=== PATIENT | male | born 1945 | race Caucasian/White ===

== ENCOUNTER 2024-10-10 13:45 | Outpatient (AMB) | payer OTHER, SELFPAY ==
--- NOTE | 2024-10-10 13:47 | A.OFFVIS_ITS ---
Vital Signs 10/10/24 13:48 Height 5 ft 5 in Weight 188 lb BMI 31.3 BP 116/72 Blood Pressure Location Rt brachial Position Sitting Pulse 74 Pulse Source Pulse Oximeter Pulse Oximetry (%) 97 Oxygen Delivery Method Room Air Intake Visit Reasons: ENP-Parkinsonism unspecified Intake Note: Patient referred by NH for parkinsonism Allergies No Known Allergies Allergy (Verified 10/10/24 13:49) Medication List - Last Reconciled 10/10/24 by Arianna García MD carbidopa-levodopa 25-100 mg 2 tabs PO escitalopram oxalate 20 mg PO metoprolol succinate ER mg PO HPI Comments Details: 78y/o Right Handed male comes for further management of parkinsons. He was diagnosed 10-12 years ago by when he presented with right hand tremors. Since then he has mildly progressed and is doing well on carbidopa/levodopa 25/100 2 tabs bid . He was seeing at NH> He describes the tremors are at rest and certain positions,and certain actions. He says the tremors are fairly controlled . He has mild softer speech and has some word finding difficulty. No drooling He has trouble with handwriting , using utensils, holding a phone etc. Gait- OK slower Memory- mild slowing SLeep- snores - sleep study was normal., has sleep talking ,can cry sometimes in sleep. Bowel movements - stable No hallucinations Mood- depression and anxiety He was in [place] for 9 mths but was discharged for being claustrophobic. No family h/o parkinsons. [facility], LAT[facility] Medical History (Updated 10/10/24 @ 14:13 by Arianna García MD) Parkinsons disease Primary osteoarthritis, unspecified site Rheumatoid arthritis Parkinson's disease with dyskinesia, with fluctuations Non-Hodgkin lymphoma, unspecified, unspecified site Muscle/ligament disorder Impaired fasting glucose Generalized anxiety disorder GERD (gastroesophageal reflux disease) Essential tremor Dysplasia of colon Disorder of skin and subcutaneous tissue Chronic prostatitis Carpal tunnel syndrome Cardiac arrhythmia BPH w/o urinary obs/LUTS Surgical History S/P bilateral inguinal herniorrhaphy Social History Alcohol intake: never Patient Tobacco Use Status: Never used Tobacco Physical Exam Vital Signs: Last Vital Signs Pulse 74 10/10/24 13:48 BP 116/72 10/10/24 13:48 Pulse Ox 97 10/10/24 13:48 Oxygen Delivery Method Room Air 10/10/24 13:48 BMI result Body Mass Index 31.3 Const General: cooperative, healthy appearing and comfortable Nutritional Appearance: average body habitus Orientation/consciousness: patient oriented x3 Eyes Pupils: Equal, round and reactive pupils present Neuro Other: right UE tremors intermittent rest and postural tremors No cogwheel rigidty FFM and foot taps - normal Gait- good General: patient oriented x3, gait normal, tone normal, moves all extremities and no focal motor deficits Cranial nerves: Yes Facial sensation intact/muscles of mastication intact, Yes Equal, round and reactive pupils present, Yes Bilaterally intact EOM present, Yes Nystagmus not present, Yes Normal facial strength present, Yes Midline tongue present, Yes Symmetric palate elevation present and Yes Ability to bilaterally elevate shoulders present Cognition (Neuro): normal cognition Gait exam (Neuro): Normal gait present Motor exam (neuro): 5/5 motor strength present throughout and Normal motor muscle tone present throughout Deep tendon reflexes (DTR's): Right triceps reflex intensity grade: 2+, Left triceps reflex intensity grade: 2+, Rt Biceps (C5, C6): 2+, Left biceps reflex intensity grade: 2+, Right brachioradialis reflex intensity grade: 2+, Left brachioradialis reflex intensity grade: 2+, Right patellar reflex intensity grade: 2+ and Left patellar reflex intensity grade: 2+ Coordination: [id number] test normal Assessment & Plan Assessment & Plan (1) Parkinsons disease: Code(s): G20.A1 - Parkinson's disease without dyskinesia, without mention of fluctuations Category: Medical Qualifiers: Dyskinesia presence: without dyskinesia Fluctuating manifestations: without fluctuating manifestations Qualified Code(s): G20.A1 - Parkinson's disease without dyskinesia, without mention of fluctuations Plan Continue sinemet 25/100 2 tabs bid Continue exercise will discuss other treatment options during his next visit [facility] Coding Level of Care Code New Pt Level 4 (27764) Diagnoses Parkinson's disease without dyskinesia or fluctuating manifestations G20.A1 Dyskinesia presence: without dyskinesia Fluctuating manifestations: without fluctuating manifestations
[2024-10-10 13:48] VITALS: BP 116/72; PULSE 74; O2SAT 97; BMI 31.3
--- OUTSIDE RECORDS SUMMARY | 2024-10-10 15:56 | XMS_ITS | Clinical Summary ---
Author Organization [facility] Address [address] [place] [address] Care Team Providers Care Blindstitch Hemmer Name Role Phone Priyanka Estes MD Primary Care Provider Unavailab le Surgical History Surgery Date Site/Laterality Comments OTHER SURGICAL HISTORY PROCEDURE: LYMPH NODE BIOPSY [facility] PATHOLOGY EXAM HERNIA REPAIR PROCEDURE: LAPAROSCOPY, INGUINAL HERNIA REPAIR COLONOSCOPY PROCEDURE: HISTORICAL COLONOSCOPY; COMMENT: history of polyp COLONOSCOPY 03/22/2020 PROCEDURE: HISTORICAL COLONOSCOPY; COMMENT: Nonbleeding external hemorrhoids, diverticulosis, Dr. Restrepo, repeat 3 years COLONOSCOPY PROCEDURE:COLONOSCOPY HERNIA REPAIR PROCEDURE:HERNIA REPAIR LYMPH NODE BIOPSY PROCEDURE:LYMPH NODE BIOPSY Medical History Medical History Date Comments Non Hodgkin's lymphoma ([facility] V24, [facility] V28) 2009 DX:Non Hodgkin's lymphoma ([facility]); COMMENT: full remission History of kidney stones DX:Hist ory of kidney stones Hyperlipidemia DX:Hyperlipidemi a Lymphoma ([facility] V24, [facility] V28) DX:Lymphoma (HCC) Parkinson's disease ([facility] V24, [facility] V28) DX:Parkinson's disease (HCC) Family History Medical History Relation Name Comments Rheum arthritis Mother Other: prediabetes Sister 1 Relation Name Status Comments Father Mother Sister 1 Sister 2 septic from gal l bladder infection Social History Tobacco Use Types Packs/Day Years Used Date Smoking Tobacco: Never Smokeless Tobacco: Never Alcohol Use Standard Drinks/Week Comments Yes 0 (1 standard drink = 0.6 oz pur e alcohol) Sex and Gender Information Value Date Recorded Sex Assigned at Not on file Legal Sex Male 1:21 PM EST Gender Identity Not on file Sexual Orientation Not on file Obstetrics History Plan of Treatment Health Maintenance Due Date Last Done Comments DTaP,Tdap,and Td Vaccines (1 - Tdap) 10/12/1963 Pneumococcal Vaccine: 50+ Ye ars (1 of 1 - PCV) 1994 Zoster Vaccines (1 of 2) 1994 RSV Immunization Adult Patie nts (1 - 1-dose 75+ series) 10/12/2019 Cholesterol Screening (Lipid Panel) 05/27/2022 Depression Screening 05/27/2022 Falls Risk Assessment 05/27/2022 Hepatitis C Screening 05/27/2022 Social Influencers of Health Screening 05/27/2022 COVID-19 Vaccine (1 - 2023-2 5 season) 2024 Influenza Vaccine (Season Ended) 2025 HIB Vaccines Aged Out No longer eligi ble based on patient's age to complete this topic HPV Vaccines Aged Out No longer eligi ble based on patient's age to complete this topic Hepatitis A Vaccines Aged Out No long er eligible based on patient's age to complete this topic Hepatitis B Vaccines Aged Out No long er eligible based on patient's age to complete this topic IPV Vaccines Aged Out No longer eligi ble based on patient's age to complete this topic MMR Vaccines Aged Out No longer eligi ble based on patient's age to complete this topic Meningococcal ACWY Vaccine Aged Out N o longer eligible based on patient's age to complete this topic Meningococcal B Vaccine Aged Out No l onger eligible based on patient's age to complete this topic RSV Immunization Patients Un yohan 20 months Aged Out No longer eligible b ased on patient's age to complete this topic Varicella Vaccines Aged Out No longer eligible based on patient's age to complete this topic Care Teams Blindstitch Hemmer Relationship Specialty Start Date End Date Priyanka Estes MD PCP - General 04/18/24
--- OUTSIDE RECORDS SUMMARY | 2024-10-10 15:56 | XMS_ITS | Clinical Summary ---
Author Organization [facility] Address [address] [place] [address] Care Team Providers Care Eyeglass Fitter Name Role Phone Priyanka Estes MD Primary Care Provider Unavailabl e Allergies No known active allergies Medications Medication Sig Dispensed Refills Start Date End Date Status carbidopa-levodopa (SINEMET) 25-100 MG per tablet Take 2 tablets by mouth 3 (three) times a day. 0 Active escitalopram (LEXAPRO) tablet 10 mg Take 10 mg by mouth daily. 0 Active omeprazole (PriLOSEC) 20 MG capsule Take 20 mg by mouth as needed. 0 Active Active Problems No known active problems Family History Relation Name Status Comments Father Mother Social History Tobacco Use Types Packs/Day Years Used Date Smoking Tobacco: Never Smokeless Tobacco: Never Alcohol Use Standard Drinks/Week Comments Yes 0 (1 standard drink = 0.6 oz pur e alcohol) 1 rum drink a day Sex and Gender Information Value Date Recorded Sex Assigned at Not on file Gender Identity Not on file Sexual Orientation Not on file Job Start Date Occupation Industry Not on file Not on file Not on file Last Filed Vital Signs Vital Sign Reading Time Taken Comments Blood Pressure 138/94 05/01/2021 10:58 AM EDT Pulse 76 05/01/2021 10:58 AM EDT Temperature 36.1 ??C (96.9 ??F) 05/01/2021 10:58 AM E DT Respiratory Rate - - Oxygen Saturation 100% 05/01/2021 10:58 AM EDT Inhaled Oxygen Concentration - - Weight 86.6 kg (191 lb) 05/01/2021 10:58 AM EDT Height 167.6 cm (5' 6 ) 05/01/2021 10:58 AM EDT Body Mass Index 30.83 05/01/2021 10:58 AM EDT Plan of Treatment Health Maintenance Due Date Last Done Comments Hepatitis C Screening 1944 COVID-19 Vaccine (#1) 1949 Pneumococcal Vaccine (1 of 2 - PCV) 1950 Depression Screening 1956 BMI Counseling 1962 Preventative Health Evaluation 1962 DTap / Tdap / Td (1 - Tdap) 10/12/1963 Shingrix-Zoster Vaccine (1 of 2) 10/12/1963 Fall Risk Assessment 2009 RSV Adult > 60+ Yrs or Pregn ant (1 - 1-dose 75+ series) 10/12/2019 Influenza Vaccine (#1) 2024 Hepatitis B Vaccines Aged Out No long er eligible based on patient's age to complete this topic RSV Ped < 20 months Aged Out No longe r eligible based on patient's age to complete this topic Care Teams Eyeglass Fitter Relationship Specialty Start Date End Date Priyanka Estes MD PCP - General Internal Medicine 03/16/20
== END 2024-10-10 14:17 | disposition home or self-care (01) ==
LOC: HO.HSMS 13:45
PROVIDERS: PCP Internal Medicine; Visit Provider Psychiatry & Neurology Neurology
DX: G20.A1 Parkinson's disease without dyskinesia, without mention of fluctuations (principal)
CPT/HCPCS: 99204

== ENCOUNTER → 2024-10-10 13:45 | Outpatient (BNVA) | payer OTHER, SELFPAY | PROVIDERS: PCP Internal Medicine; Visit Provider Psychiatry & Neurology Neurology | DX: G20.A1 Parkinson's disease without dyskinesia, without mention of fluctuations (principal) | CPT/HCPCS: 99202 ==

== ENCOUNTER 2025-04-28 08:09 | Outpatient (AMB) | payer OTHER, SELFPAY ==
--- OUTSIDE RECORDS SUMMARY | 2025-04-28 08:16 | XMS_ITS | Clinical Summary ---
Author Organization [facility] Address [address] [place] [address] Care Team Providers Care Nurses' Association Counselor Name Role Phone Priyanka Estes MD Primary [...] 76 05/01/2021 10:58 AM EDT Temperature 36.1 C (96.9 F) 05/01/2021 10:58 AM EDT Respiratory Rate - - Oxygen Saturation 100% 05/01/2021 10:58 AM EDT Inhaled Oxygen Concentration - - Weight 86.6 kg (191 lb) 05/01/2021 10:58 AM EDT Height 167.6 cm (5' 6 ) 05/01/2021 10:58 AM EDT Body Mass Index 30.83 05/01/2021 10:58 AM EDT Plan of Treatment Health Maintenance Due Date Last Done Comments COVID-19 Vaccine (#1) 04/12/1945 Depression Screening 1956 BMI Counseling 1962 Preventative Health Evaluation 1962 DTap / Tdap / Td (1 - Tdap) 10/12/1963 Shingrix-Zoster Vaccine (1 of 2) 1994 Fall Risk Assessment 2009 Pneumococcal Vaccine (1 of 1 - PCV) 2009 RSV Adult > 60+ Yrs or Pregn ant (1 - 1-dose 75+ series) 10/12/2019 Influenza Vaccine (#1) 2025 Hepatitis B Vaccines Aged Out No long er eligible based on patient's age to complete this topic RSV Ped < 20 months Aged Out No longe r eligible based on patient's age to complete this topic Care Teams Nurses' Association Counselor Relationship Specialty Start Date End Date Priyanka Estes MD PCP - General Internal Medicine 03/16/20
--- NOTE | 2025-04-28 08:29 | A.OFFVIS_ITS ---
Vital Signs 04/28/25 08:30 Height 5 ft 5 in Weight 196 lb BMI 32.6 BP 116/72 Blood Pressure Location Rt brachial Position Sitting Pulse 68 Pulse Source Pulse Oximeter Pulse Oximetry (%) 97 Oxygen Delivery Method Room Air Intake Visit Reasons: follow up PD Intake Note: Patient presents follow up Parkinson's. Patient states shaking is getting worse(right hand) Allergies No Known Allergies Allergy (Verified 04/28/25 08:34) HPI Comments Details: 79 y/o right handed male comes for further management of Parkinsons Disorder. He was diagnosed 10-12 years ago by when he presented with right hand tremors. Since then he has mildly progressed and is doing well on carbidopa/levodopa 25/100 2 tabs tid He is seeing Dr. Ulrich and Dr. Chance at the [place]. He takes CD/LD 25mg / 100mg 7am 2tablets, noon 2 tablets, and at 7PM 2tablets. We discussed medication adherence and administration on time as prescribed, without proteins, as absorption of CD/LD decreases due to protein consumption within two hours after eating proteins. He has insomnia, goes from the couch to the bed, is restless all night long, snores,cries, talks, HST is normal, has difficulty turning over in bed and can fall out of bed. Tremors are worse with rest and when drinking coffee with activities requiring fine motor coordination, hand writing is shaky, and has difficulty holding cell phone. Gait slower, good stride, denies freezing, shuffling, denies balance and gait instability. Denies use of a rolling walker or cane. Speech is mild, hypophonia, difficulty with projecting. Dysphagia denies drooling, difficulties with solids or liquids. Chews slowly can eat all foods. Memory is stable has some difficulty expressing thoughts and with word recall. Bowel movements - stable, can take laxative when needs it. No A/V hallucinations. He feels unstable in the shower, he declines second shower has blood pressure changes and needs shower chair. [facility] - home assessment. Mood- depression and anxiety. He is active walks 1 mile every other day, golf every other day. He was in [place] for 9 mths but was discharged for being claustrophobic. Denies family h/o Parkinsons. [facility], [facility] Medical History Parkinsons disease Primary osteoarthritis, unspecified site Rheumatoid arthritis Parkinson's disease with dyskinesia, with fluctuations Non-Hodgkin lymphoma, unspecified, unspecified site Muscle/ligament disorder Impaired fasting glucose Generalized anxiety disorder GERD (gastroesophageal reflux disease) Essential tremor Dysplasia of colon Disorder of skin and subcutaneous tissue Chronic prostatitis Carpal tunnel syndrome Cardiac arrhythmia BPH w/o urinary obs/LUTS Surgical History S/P bilateral inguinal herniorrhaphy Social History Alcohol intake: never Patient Tobacco Use Status: Never used Tobacco Physical Exam Vital Signs: Last Vital Signs Pulse 68 04/28/25 08:30 BP 116/72 04/28/25 08:30 Pulse Ox 97 04/28/25 08:30 Oxygen Delivery Method Room Air 04/28/25 08:30 BMI result Body Mass Index 32.6 Const General: cooperative, healthy appearing and comfortable Nutritional Appearance: average body habitus Orientation/consciousness: patient oriented x3 HEENT Face and sinus: Yes face symmetric Throat: Yes uvula midline Eyes Pupils: Equal, round and reactive pupils present Neck Neck: Yes full ROM Resp Effort & Inspection: normal respiratory effort and able to speak in complete sentences Neuro Other: right UE tremors intermittent rest and postural tremors, oral tremors. No cogwheel rigidity, no bradykinesia FFM and foot taps - normal , no freezing or shuffling of feet. Gait- good stride, swings arms. General: patient oriented x3, gait normal, tone normal, moves all extremities and no focal motor deficits Cranial nerves: Yes Facial sensation intact/muscles of mastication intact, Yes Equal, round and reactive pupils present, Yes Bilaterally intact EOM present, Yes Nystagmus not present, Yes Normal facial strength present, Yes Midline tongue present, Yes Symmetric palate elevation present and Yes Ability to bilaterally elevate shoulders present Cognition (Neuro): normal cognition Gait exam (Neuro): Normal gait present Motor exam (neuro): 5/5 motor strength present throughout and Normal motor muscle tone present throughout Deep tendon reflexes (DTR's): Right triceps reflex intensity grade: 2+, Left triceps reflex intensity grade: 2+, Rt Biceps (C5, C6): 2+, Left biceps reflex intensity grade: 2+, Right brachioradialis reflex intensity grade: 2+, Left brachioradialis reflex intensity grade: 2+, Right patellar reflex intensity grade: 2+ and Left patellar reflex intensity grade: 2+ Coordination: [id number] test normal Assessment & Plan Assessment & Plan (1) Parkinsons disease: Code(s): G20.A1 - Parkinson's disease without dyskinesia, without mention of fluctuations Category: Medical (2) Difficulty turning in bed: Code(s): R68.89 - Other general symptoms and signs Category: Medical (3) At moderate risk for fall: Code(s): Z91.81 - History of falling Category: Medical Plan Continue sinemet 25/100 2 tabs tid 7am, noon, and bedtime. Continue daily exercise Will discuss other treatment options during his next visit Ryvinnie, crexont, Entacapone, Ropinorole. [facility] labs? Insomnia melatonin 5-10mg po daily for insomnia RLS / symptoms He takes magnesium puritan products daily, does not know the dose. [facility] - Safety Assessment, for bed side guard rails, stairs / ramp evaluation, shower chair DME and lighting for safe ambulation. f/u in 3 months. Orders: Referrals [facility] Referral G20.A1 - Parkinson's disease without dyskinesia, without mention of fluctuations, R68.89 - Other general symptoms and signs Medications: New [shower chair] As directed 1 ea 0RF risk of fall in shower due to parkinsons Z91.81 - History of falling [bed gaurd rails] As directed 1 ea 0RF falls from bed R68.89 - Other general symptoms and signs, Z91.81 - History of falling Changed From carbidopa-levodopa 25-100 mg 2 tabs PO TID parkinsons G20.A1 - Parkinson's disease without dyskinesia, without mention of fluctuations To carbidopa-levodopa 25-100 mg 2 at 7am, 2 at noon, 2 at bedtime. 2 tabs PO TID 540 tabs 0RF parkinsons 3 months MDD 6 tablets G20.A1 - Parkinson's disease without dyskinesia, without mention of fluctuations Patient Instructions: Please complete the following fasting labs to rule out deficiencies. CBC/CMP/ B12/ Vit D/ TSH/ Homocysteine and MMA/ Ferritin. Sleep Hygiene provided: set a scheduled bedtime and wake time to help regulate the circadian rhythm and balance the release of pituitary hormones. Sleep in a dark room, temperatures below 68 degrees, and no devices n bed. Limit caffei nated products 6 hours prior to bed, and limit fluids 2-4 hours prior to bed. Gentle night yoga, diffusing essential oils, and playing soft music can be relaxing. Coding Level of Care Code Est Pt Level 4 (57001) Diagnoses Parkinsons disease G20.A1 Difficulty turning in bed R68.89 At moderate risk for fall Z91.81
[2025-04-28 08:30] VITALS: BP 116/72; PULSE 68; O2SAT 97; BMI 32.6
== END 2025-04-28 09:17 | disposition home or self-care (01) ==
LOC: HO.HSMS 08:09
PROVIDERS: PCP Internal Medicine; Visit Provider Physician Assistant Medical
DX: G20.A1 Parkinson's disease without dyskinesia, without mention of fluctuations (principal); R68.89 Other general symptoms and signs; Z91.81 History of falling
CPT/HCPCS: 99214

== ENCOUNTER → 2025-04-28 08:09 | Outpatient (BNVA) | payer OTHER, SELFPAY | PROVIDERS: PCP Internal Medicine; Visit Provider Physician Assistant Medical | DX: G20.A1 Parkinson's disease without dyskinesia, without mention of fluctuations (principal); R68.89 Other general symptoms and signs; Z91.81 History of falling; Z79.899 Other long term (current) drug therapy | CPT/HCPCS: 99212 ==